=== PATIENT | male | born 1985 | race Caucasian/White ===

== ENCOUNTER 2016-06-14 08:11 | Emergency (ER) | payer OTHER ==
[~2016-06-14] VITALS: Ht 180.3 cm; Wt 128.3 kg
[~2016-06-14 08:11] MED LIST: FLVHFA110 INH; IBUP-1277 PO; MULT-273 PO; ONDA4TAB7 SL; TYLOTC500 PO
[2016-06-14 08:15] VITALS: BP 161/106; PULSE 120; TEMP 36.8; O2SAT 97; Ht 180.3 cm; Wt 128.3 kg
[2016-06-14] MEDS ORDERED: AMOX875T PO (08:38)
[2016-06-14] MEDS ORDERED: AMOX250C3 PO (08:42)
[2016-06-14] MEDS ORDERED: MULT-506 PO (08:42)
[2016-06-14] MEDS ORDERED: ALBU18002 INH (08:42)
[2016-06-14] MEDS ORDERED: FLUT0.15 NAE (08:42)
[2016-06-14] MEDS ORDERED: METH4PAK PO (08:42)
--- NOTE | 2016-06-14 18:36 | EMERGENCY ROOM VISIT NOTE ---
ED Visit Note First contact with patient: 08:23 CHIEF COMPLAINT: Right ear pain HISTORY OF PRESENT ILLNESS: This 30-year-old white male has had right ear pain for 2 days. He has had a recent URI and was evaluated by his PCP for sinusitis yesterday. He was prescribed amoxicillin. He describes some pressure in his right ear yesterday. There is no cough and no hoarseness. No decrease in fluid intake. No fevers, chills, sweats, nausea, vomiting, or diarrhea. No difficulty breathing. No trauma. He states he went to bed last night and awoke this morning with blood on his pillow. He had dried blood in his right ear canal. He became concerned and came here for evaluation. He also states he is having difficulty hearing out of that ear and he has a whooshing-type sound. Pain is 2/10. No prior history of significant ear infections. REVIEW OF SYSTEMS: HEENT: No visual problems, hearing loss, or tinnitus. There is no difficulty swallowing and no oral lesions are present. LYMPH: No adenopathy. PULMONARY: No cough, shortness of breath, sputum production or hemoptysis. CARDIOVASCULAR: No palpitations, shortness of breath or peripheral edema. GASTROINTESTINAL: No diarrhea, constipation, nausea, vomiting, or abdominal pain. GENITOURINARY: No dysuria, frequency, urgency or nocturia. NEUROLOGIC: No weakness, muscle tenderness, epilepsy or history of neurological problems. MUSCULOSKELETAL: No history of joint tenderness/swelling. No history of arthritis or arthralgias. SKIN: No rashes or lesions. ENDOCRINE: No history of diabetes, thyroid disorders, or abnormal hair growth. PMH: Supplemental sheet was reviewed and signed. Previous surgeries: Tonsillectomy Adenoidectomy Medical history: Significant for history of asthma, bronchitis, and pneumonia Allergies: Robitussin Current Medications: Amoxicillin, albuterol, Flonase, prednisone, Motrin, multivitamin Family History: Significant for diabetes, heart disease, hypertension, lung disease, gallbladder disease, and kidney stones. Parents are living. SOCIAL HISTORY: Patient lives at home with his children and spouse. No tobacco use, occasional EtOH use. Employed. PHYSICAL EXAM: Vital Signs: Afebrile. Reviewed and filed in patient's chart. SKIN: Warm and dry with good turgor. No rashes or lesions. No ecchymosis or erythema. The patient is not diaphoretic. No abrasions. HEENT: Normocephalic atraumatic. Eyes PERRLA, EOMI. No conjunctiva or scleral injection. Ears TM intact on the left. Right TM with erythema and visible rupture. There is some blood in the canal as well as behind the membrane. Left ear has a normal TM without redness or bulging. Canals are patent. Nares patent bilaterally without turbinate enlargement. Thick white drainage visible bilaterally. No epistaxis. Oropharynx without erythema or exudate. Uvula midline, oral mucosa moist. No lesions present. Lymphatics are palpated without anterior or posterior chain enlargement or tenderness. Heart: Heart RRR. No MGR. Peripheral pulses are 2+. LUNGS: Clear to auscultation bilaterally and breath sounds equal. No wheezes, rales, or rhonchi. DIAGNOSIS: Acute right otitis media with perforation DISCHARGE INSTRUCTIONS & TREATMENT: The patient was educated regarding today's findings. Conservative care measures were discussed. He will stop the amoxicillin and was switched to Augmentin twice a day 10 days for broader coverage. He will need to keep the ear dry. Use Tylenol and ibuprofen every 6 hours as needed for fever or discomfort. Maintain hydration. Otitis media handout was provided. Follow-up with his PCP this week for a recheck. Return to the ER for any acute changes. He understands that this may spontaneously heel, or he may require ENT evaluation if it has not fully sealed within 4 weeks. The Augmentin should also help with his acute sinusitis. I do not suspect otitis externa at this time. Problem List Medical Problems: (1) Asthma Status: Chronic Current/Historical Medications Scheduled Amoxicillin (Amoxil), Unknown Dose PO Q12 Amoxicillin & Pot Clavulanate (Augmentin 875-125 mg), 1 TAB PO BID Fluticasone Propionate (Nasal) (Flonase Allergy Relief), 1 SPRAY SHAUNA DAILY Methylprednisolone (Medrol Dosepak), 1 PKT PO UD Multivitamin (Multivitamin), 1 TAB PO DAILY Scheduled PRN Albuterol Sulfate (Proair Respiclick), 2 PUFFS INH Q4 PRN for SOB/Wheezing Ibuprofen (Advil), 200 MG PO Q4H PRN for Pain or Fever Allergies Coded Allergies: Ethanol (Verified Allergy, Unknown, throat swells up, 06/14/16) Guaifenesin (Unverified Allergy, Unknown, 06/14/16) Vital Signs Date Time Temp Pulse Resp B/P Pulse Ox O2 Delivery O2 Flow Rate FiO2 06/14/16 08:15 36.8 120 18 161/106 97 Room Air Departure Information Impression Primary Impression: Otitis media, acute with perforation of eardrum Dispostion Home / Self-Care Condition GOOD Prescriptions Amoxicillin & Pot Clavulanate (Augmentin 875-125 mg) 1 Tab Tab 1 TAB PO BID for 10 Days, #20 TAB Prov: Jose Alberto Johnson,P.A. 06/14/16 Referrals RV. Nieves MD (PCP) No Doctor, Assigned Forms WORK / SCHOOL INSTRUCTIONS, HOME CARE DOCUMENTATION FORM, MOTRIN USE, TYLENOL USE, IMPORTANT VISIT INFORMATION Patient Instructions My [facility], ED Otitis Media W Perforation Additional Instructions Switch to Augmentin 1 pill twice a day 10 days Follow-up with your PCP next week as scheduled Avoid getting water in the ear canal continue your other medications as previously prescribed Tylenol and Motrin every 6 hours as needed for discomfort/fever control Continue using your decongestant to decrease ear/sinus pressure Return to the ED for any acute changes Follow-up with ENT if perforation last longer than a month
== END 2016-06-14 08:48 | disposition home or self-care (01) ==
LOC: C.EDB 08:13
DX: H66.91 Otitis media, unspecified, right ear (principal); H72.91 Unspecified perforation of tympanic membrane, right ear; J45.909 Unspecified asthma, uncomplicated; Z87.01 Personal history of pneumonia (recurrent)

== ENCOUNTER → 2016-08-06 | Outpatient (CLI) | payer OTHER ==
[~2016-08-06] MED LIST changes: +ALBU18002 INH; +AMOX250C3 PO; +FLUT0.15 NAE; -FLVHFA110 INH; +METH4PAK PO; -MULT-273 PO; +MULT-506 PO; -ONDA4TAB7 SL; -TYLOTC500 PO
[2016-08-06 09:58] LABS: ESTIMATED AVERAGE GLUCOSE 117 mg/dl; HA1C FLAG Normal (Normal)
[2016-08-06 10:02] LABS: CHOLESTEROL/HDL RATIO 5.4
== END | disposition home or self-care (01) ==
LOC: C.LAB1850 07:55
PROVIDERS: ATTEND Internal Medicine
DX: R73.9 Hyperglycemia, unspecified (principal)